=== PATIENT | female | born 1990 | race Caucasian/White ===

== ENCOUNTER 2017-01-08 14:13 | Emergency (ER) | payer BC ==
[2017-01-08 16:23] VITALS: BP 138/73
--- NOTE | 2017-01-08 16:38 | UC ---
Respiratory Complaint HPI - HPI Summary HPI Summary: 26 female presents to [facility] with complaints of cough and congestion that has been ongoing for the past 1.5weeks. Patient states she did at first have nasal congestion and sore throat and then symptoms have seemed to worsen and turn into chest congestion/cough. Throat is still irritated from coughing. States she was at first coughing up phlegm however has not recently had productive cough. Has been taking mucinex d and robitussin with some relief. No other complaints. Denies fever/chills, current sore throat, chest pain, difficulty breathing and headache. PMHx significant for asthma. - History of Current Complaint Chief Complaint: UCGeneralIllness Stated Complaint: CONGESTION COUGH SORE THROAT Time Seen by Provider: 01/08/17 16:11 Hx Obtained From: Patient Hx Last Menstrual Period: 12/09/2016 Onset/Duration: Sudden Onset, Lasting Weeks, Still Present, Worse Since Timing: Constant Severity Initially: Mild Severity Currently: Moderate Character: Cough: Nonproductive - currently, was productive, Sputum Description : - clear/green phlegm Aggravating Factors: Deep Breaths, Recumbent Position Alleviating Factors: OTC Meds, Upright Position Associated Signs And Symptoms: Positive: Wheezing, URI, Nasal Congestion. Negative: Dyspnea, Fever, Chills, Pleuritic Chest Pain, Hemoptysis, Calf Pain - Allergies/Home Medications Allergies/Adverse Reactions: Allergies Allergy/AdvReac Type Severity Reaction Status Date / Time No Known Allergies Allergy Verified 01/08/17 16:23 PMH/Surg Hx/FS Hx/Imm Hx - Additional Past Medical History Additional PMH: Denies DM and HTN Respiratory History: Asthma - Surgical History Surgical History: None - Family History Known Family History: Positive: None - Social History Alcohol Use: Occasionally Substance Use Type: None Smoking Status (MU): Never Smoked Tobacco - Immunization History Most Recent Influenza Vaccination: NOT CURRENT Review of Systems Constitutional: Negative ENT: Sore Throat, Nasal Discharge Respiratory: Cough Cardiovascular: Negative Gastrointestinal: Negative Neurological: Negative All Other Systems Reviewed And Are Negative: Yes Physical Exam Triage Information Reviewed: Yes Appearance: Well-Appearing, No Pain Distress, Well-Nourished Vital Signs: Initial Vital Signs Temp 97.2 F 01/08/17 16:18 Pulse 89 01/08/17 16:18 Resp 18 10/30/17 16:18 BP 138/73 01/08/17 16:18 Pulse Ox 99 01/08/17 16:18 Vital Signs Reviewed: Yes Eyes: Positive: Conjunctiva Clear ENT: Positive: Normal ENT inspection, Hearing grossly normal, Pharyngeal erythema, TMs normal - cerumen in left EAC. Negative: TM bulging, TM dull, TM red, Tonsillar swelling, Tonsillar exudate, Muffled voice, Hoarse voice, Dental tenderness Dental: Negative: Percussion Tenderness @, Cervical Lymphadenopathy Neck: Positive: Supple, Nontender, No Lymphadenopathy Respiratory: Positive: Chest non-tender, Lungs clear, Normal breath sounds, No respiratory distress, No accessory muscle use. Negative: Crackles, Rhonchi, Stridor Cardiovascular: Positive: RRR, No Murmur, Pulses Normal Bowel Sounds: Positive: Present Neurological Exam: Normal Skin Exam: Normal UC Diagnostic Evaluation - Laboratory O2 Sat by Pulse Oximetry: 99 Respiratory Course/Dx - Course Course Of Treatment: appears to be suffering from acute bronchitis, failed OTC treatment. will give prednisone, albuterol inhaler and tessalon pearsl. hold off on antibiotic unless symtoms worsen or persist past 1 more week. patient agrees and understands, is compliant. no other concern at this time. normal PE findings and vitals. increase fluid and rest. follow up pcp. - Differential Dx/Diagnosis Differential Diagnosis/HQI/PQRI: Bronchitis, Influenza, Lower Resp Infection, Other - URI Provider Diagnoses: acute bronchitis, bronchospasm Discharge - Discharge Plan Condition: Stable Disposition: HOME Prescriptions: Albuterol HFA INHALER* [Ventolin HFA Inhaler*] 1 puff INH Q6H PRN #1 mdi PRN Reason: Sob/Wheezing Azithromycin TAB* [Zithromax TAB (Z-CECELIA) 250 mg #6 tabs] 2 tab PO .TODAY, THEN 1 DAILY #1 cecelia Benzonatate CAP* [Tessalon 100 MG CAP*] 100 mg PO TID #215 cap predniSONE TAB* [Deltasone TAB*] 20 mg PO DAILY #3 tab Patient Education Materials: Bronchospasm (ED), Acute Bronchitis (ED) Referrals: No Primary Care Phys,NOPCP [Primary Care Provider] - [facility] [Outside] Additional Instructions: Take prescribed medication as directed. Use inhaler as needed. Tessalon pearls at bedtime. Refrain from use of antibiotic unless symptoms worsen or persist over 1 more week. Increase fluid intake, avoid dairy. Get plenty of rest. hot showers, humidified air. Continue mucinex. Follow up with PCP. Any new or worsening symptoms please seek medical attention promptly.
== END 2017-01-08 16:52 | disposition home or self-care (01) ==
LOC: UCCORT 14:13
DX: J20.9 Acute bronchitis, unspecified (principal)
CPT/HCPCS: 99201; G0463